=== PATIENT | male | born 1950 | race African-American/Black ===

== ENCOUNTER 2017-02-10 20:37 | Emergency (ER) | payer MEDICARE, OTHER ==
[~2017-02-10] VITALS: Ht 182.9 cm; Wt 110.0 kg
[2017-02-10 21:21] VITALS: BP 195/105; PULSE 80; RESP 16; TEMP 98.2; O2SAT 100
[2017-02-10] MEDS ORDERED: TAMS5CAP PO (21:28)
--- NOTE | 2017-02-10 21:36 | PD ---
HPI Chief Complaint: Psychiatric Symptoms Time Seen by Provider: 21:29 Travel History International Travel<30 days: No Contact w/Intl Traveler<30days: No Traveled to known affect area: No History of Present Illness HPI Patient is a 66-year-old male presents emergency department on [place] act. 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 Patient states that he had just finished burying one of his dogs and came home to find a water was off. He called the [employer] and found that he had when he interpreted as an exorbitant bill and late feet. He paid the bill and then stated "this would make Senior Citizens suicidal having to decide between water and there prescriptions." He states that several hours later the police showed up and arrested him to bring him to [facility] to be seen. He states that he felt very embarrassed that his neighbors had to see him be placed in handcuffs. According to the [employer] act, "while Jose Armando was talking to the employee, he stated he would shoot himself in the head if he had a gun." Patient denies stating this and states he doesn't have any guns at home. He is calm and collected but states that he is fairly angry as to the ace on this afternoon. According to documentation in [facility], the patient was taken there and when he was found out that he self catheters they brought him to [place]. He does not have any intake or evaluation documentation. PFSH Past Medical History Diminished Hearing: No Medical other: Yes (BPH) Immunizations Current: No Tetanus Vaccination: > 5 Years Influenza Vaccination: No Social History Alcohol Use: No Tobacco Use: No Substance Use: No Allergies-Medications (Allergen,Severity, Reaction): Coded Allergies: No Known Allergies (Unverified , 02/10/17) Reported Meds & Prescriptions Reported Meds & Active Scripts Active Reported Flomax (Tamsulosin HCl) 0.4 Mg Cap 0.4 Mg PO HS Review of Systems Except as stated in HPI: all other systems reviewed are Neg Physical Exam Narrative GENERAL: Well-developed well-nourished no apparent distress SKIN: Focused skin assessment warm/dry. HEAD: Atraumatic. Normocephalic. EYES: Pupils equal and round. No scleral icterus. No injection or drainage. ENT: No nasal bleeding or discharge. Mucous membranes pink and moist. NECK: Trachea midline. No JVD. CARDIOVASCULAR: Regular rate and rhythm. No murmur appreciated. RESPIRATORY: No accessory muscle use. Clear to auscultation. Breath sounds equal bilaterally. GASTROINTESTINAL: Abdomen soft, non-tender, nondistended. Hepatic and splenic margins not palpable. MUSCULOSKELETAL: No obvious deformities. No clubbing. No cyanosis. No edema. NEUROLOGICAL: Awake and alert. No obvious cranial nerve deficits. Motor grossly within normal limits. Normal speech. PSYCHIATRIC: Calm affect, angry mood. Insight and judgment normal. Patient states he just wants to go home and Bury his other dog that just . He states he wants to play with his other dogs. He states he would never kill himself. After lengthy conversation with this patient I do not believe he is a threat to himself or others. Data Data Last Documented VS Vital Signs Date Time Temp Pulse Resp B/P Pulse Ox O2 Delivery O2 Flow Rate FiO2 02/10/17 21:21 98.2 80 16 195/105 100 Room Air Orders Complete Blood Count With Diff (02/10/17 21:02) Comprehensive Metabolic Panel (02/10/17 21:02) Urinalysis - C+S If Indicated (02/10/17 21:02) Psych Screen (02/10/17 21:02) Drug Screen, Random Urine (02/10/17 21:02) Alcohol (Ethanol) (02/10/17 21:02) Salicylates (Aspirin) (02/10/17 21:02) Tylenol (Acetaminophen) (02/10/17 21:02) MDM Medical Decision Making Medical Screen Exam Complete: Yes Emergency Medical Condition: Yes Differential Diagnosis Suicidal ideation, depression, adjustment disorder. Narrative Course After lengthy conversation with this patient, he is not a threat to himself. 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 He states he wants to go home and play with his dogs and then very his dog in the yard. He is calm and collected and actually very pleasant. I have lifted his [place] act. He will be discharged home. He has called for a ride. Diagnosis Primary Impression: Adjustment disorder Qualified Code: F43.20 - Adjustment disorder, unspecified type Disposition: DISCHARGE HOME Condition: Stable Jose Armando Riddle MD February 10, 2017 21:36
== END 2017-02-10 22:50 | disposition home or self-care (01) ==
LOC: NEPD 20:37
DX: F43.20 Adjustment disorder, unspecified (principal); N40.0 Benign prostatic hyperplasia without lower urinary tract symptoms
CPT/HCPCS: 99283